=== PATIENT | female | born 1985 | race Caucasian/White ===

== ENCOUNTER → 2016-05-07 | Outpatient (REF) | payer OTHER ==
[~2016-05-07] MED LIST: ACET50TA PO; IBUP60TA PO; VITAPRTA PO
[2016-05-07 20:53] LABS: BASO % 0.7 % (0.0-1.0); EOS # 0.2 K/mm3 (0.0-0.50); EOS % 2.3 % (0.0-3.0); LARGE UNSTAINED CELL # 0.2 K/mm3 (0.0-0.4); LYMPH # 1.9 K/mm3 (1.5-6.5); LYMPH % 23.2 % (24.0-44.0); MEAN CORPUSCULAR HEMOGLOBIN 29.4 pg (27.0-33.0); MEAN CORPUSCULAR HGB CONC 33.1 g/dl (32.0-36.5); MEAN CORPUSCULAR VOLUME 88.9 fl (80.0-96.0); MONO # 0.3 K/mm3 (0.0-0.8); MONO % 3.7 % (0.0-5.0); NEUTROPHILS # 5.6 K/mm3 (1.8-7.7); NEUTROPHILS % 68.1 % (36.0-66.0); PLATELET COUNT, AUTOMATED 192 k/mm3 (150-450); RED CELL DISTRIBUTION WIDTH 12.9 % (11.5-14.5); WHITE BLOOD COUNT 8.2 K/mm3 (4.0-10.0)
[2016-05-07 21:17] LABS: FOLATE > 24.0 NG/ML; VITAMIN B12 LEVEL 941 PG/ML
[2016-05-07 21:23] LABS: ALBUMIN 4.5 GM/DL (3.2-5.2); ALBUMIN/GLOBULIN RATIO 1.41 (1.00-1.93); ALKALINE PHOSPHATASE 65 U/L (45-117); ALT/SGPT 30 U/L (12-78); ANION GAP 9 MEQ/L (8-16); AST/SGOT 25 U/L (15-37); BILIRUBIN,TOTAL 0.9 MG/DL (0.2-1.0); BLOOD UREA NITROGEN 16 MG/DL (7-18); CALCIUM LEVEL 8.8 MG/DL (8.5-10.1); CARBON DIOXIDE LEVEL 30 MEQ/L (21-32); CHLORIDE LEVEL 102 MEQ/L (98-107); CREATININE FOR GFR 0.69 MG/DL (0.55-1.02); GLOMERULAR FILTRATION RATE > 60.0 (>60); GLUCOSE, FASTING 74 MG/DL (70-105); POTASSIUM SERUM 3.7 MEQ/L (3.5-5.1); SODIUM LEVEL 141 MEQ/L (136-145); TOTAL PROTEIN 7.7 GM/DL (6.4-8.2)
== END ==
LOC: M LABDRWAD 19:45
PROVIDERS: ATTEND Nurse Practitioner Family
DX: R53.1 Weakness (principal)

== ENCOUNTER → 2016-09-15 | Outpatient (REF) | payer OTHER | LOC: M LAB REF 09:33 | PROVIDERS: ATTEND Physician Assistant | DX: N39.0 Urinary tract infection, site not specified (principal) ==

== ENCOUNTER → 2017-01-29 | Outpatient (REF) | payer OTHER | LOC: M LAB REF 13:28 | PROVIDERS: ATTEND Physician Assistant Medical | DX: N30.01 Acute cystitis with hematuria (principal) ==

== ENCOUNTER → 2017-04-04 | Outpatient (REF) | payer OTHER ==
[2017-04-04 21:16] LABS: BASO % 0.5 % (0.0-1.0); EOS # 0.2 10^3/uL (0.0-0.50); EOS % 2.2 % (0.0-3.0); IMMATURE GRANULOCYTE % 0.3 % (0-0); LYMPH # 1.4 10^3/uL (1.5-4.5); LYMPH % 18.4 % (24.0-44.0); MEAN CORPUSCULAR HEMOGLOBIN 30.4 pg (27.0-33.0); MEAN CORPUSCULAR VOLUME 89.4 fl (80.0-96.0); MONO # 0.5 10^3/uL (0.0-0.8); MONO % 6.2 % (0.0-5.0); NEUTROPHILS # 5.4 10^3/uL (1.8-7.7); NEUTROPHILS % 72.4 % (36.0-66.0); PLATELET COUNT, AUTOMATED 158 10^3/uL (150-450); RED CELL DISTRIBUTION WIDTH 12.8 % (11.5-14.5); WHITE BLOOD COUNT 7.4 10^3/uL (4.0-10.0)
[2017-04-05 10:28] LABS: HBsAg Prenatal NEGATIVE (NEGATIVE)
== END ==
LOC: M LAB REF 08:45
DX: Z36.89 Encounter for other specified antenatal screening (principal); Z3A.08 8 weeks gestation of pregnancy
CPT/HCPCS: 86762

== ENCOUNTER → 2017-05-30 | Outpatient (CLI) | payer BC, OTHER | LOC: M SMT 07:56 | DX: Z34.82 Encounter for supervision of other normal pregnancy, second trimester (principal); Z3A.18 18 weeks gestation of pregnancy | CPT/HCPCS: 76811 ==

== ENCOUNTER → 2017-08-01 | Outpatient (CLI) | payer BC, OTHER | LOC: M SMT 08:05 | DX: Z34.82 Encounter for supervision of other normal pregnancy, second trimester (principal) ==

== ENCOUNTER → 2017-08-08 | Outpatient (CLI) | payer OTHER, BC ==
[2017-08-08 20:08] LABS: HEMATOCRIT 29.4 % (36.0-47.0); HEMOGLOBIN 9.9 g/dl (12.0-15.5); MEAN CORPUSCULAR HEMOGLOBIN 30.5 pg (27.0-33.0); MEAN CORPUSCULAR HGB CONC 33.7 g/dl (32.0-36.5); MEAN CORPUSCULAR VOLUME 90.5 fl (80.0-96.0); PLATELET COUNT, AUTOMATED 154 10^3/uL (150-450); RED BLOOD COUNT 3.25 10^6/uL (4.00-5.40); RED CELL DISTRIBUTION WIDTH 13.1 % (11.5-14.5); WHITE BLOOD COUNT 8.8 10^3/uL (4.0-10.0)
[2017-08-08 20:14] LABS: GLUCOSE CHALLENGE TEST 1 HOUR 104 MG/DL (LESS THAN 140)
[2017-08-09 08:58] LABS: TYPE AND SCREEN PRENATAL1 1 1
== END ==
LOC: M WUC 16:08
PROVIDERS: Orthopaedic Surgery
DX: Z34.82 Encounter for supervision of other normal pregnancy, second trimester (principal); Z3A.00 Weeks of gestation of pregnancy not specified
CPT/HCPCS: 82950

== ENCOUNTER → 2017-09-27 | Outpatient (REF) | payer OTHER | LOC: M LAB REF 13:05 | DX: Z34.83 Encounter for supervision of other normal pregnancy, third trimester (principal) ==

== ENCOUNTER 2017-10-19 19:59 | Inpatient (IN) | payer BC, OTHER ==
[2017-10-19] MEDS ORDERED: LACTATED RINGER'S 1000 ML IV ×2 (20:52→22:23)
[2017-10-19] MEDS ORDERED: LR 1,000 ML IV (20:52)
[2017-10-19] MEDS: CEPHALEXIN 500 MG CAP PO (21:00)
[2017-10-19 21:28] LABS: HEMATOCRIT 36.3 % (36.0-47.0); HEMOGLOBIN 12.3 g/dl (12.0-15.5); MEAN CORPUSCULAR HEMOGLOBIN 29.4 pg (27.0-33.0); MEAN CORPUSCULAR HGB CONC 33.9 g/dl (32.0-36.5); MEAN CORPUSCULAR VOLUME 86.8 fl (80.0-96.0); PLATELET COUNT, AUTOMATED 150 10^3/uL (150-450); RED BLOOD COUNT 4.18 10^6/uL (4.00-5.40); RED CELL DISTRIBUTION WIDTH 15.2 % (11.5-14.5); WHITE BLOOD COUNT 8.5 10^3/uL (4.0-10.0)
[2017-10-19] MEDS ORDERED: FENTANYL 2MCG/ML ROPIVACAINE 0.2% IN 0.9% NACL 200ML IVBAG As Ordered (21:35)
[2017-10-19 21:48] LABS: AMPHETAMINES URINE REFLEX NEGATIVE (NEGATIVE); BARBITURATES URINE REFLEX NEGATIVE (NEGATIVE); BENZODIAZEPINES URINE REFLEX NEGATIVE (NEGATIVE); CANNABINOIDS URINE REFLEX NEGATIVE (NEGATIVE); COCAINE METABOLITE URINE REFLE NEGATIVE (NEGATIVE); METHADONE URINE REFLEX NEGATIVE (NEGATIVE); OPIATES URINE REFLEX NEGATIVE (NEGATIVE); PHENCYCLIDINE URINE REFLEX NEGATIVE (NEGATIVE)
[2017-10-19] MEDS ORDERED: EPIDURAL COMMENT XX (22:23)
[2017-10-19] MEDS ORDERED: REFRIGERATOR IV KEYS XX (22:23)
[2017-10-19] MEDS ORDERED: diphenhydrAMINE INJ 50MG/ML VIAL (J1200) IV (22:23)
[2017-10-19] MEDS ORDERED: NALOXONE INJ 0.4 MG/1 ML VIAL (J2310) IV (22:23)
[2017-10-19] MEDS ORDERED: FENTANYL/ROPIVACAINE/NACL BAG 200 ML EPIDURAL (22:23)
[2017-10-19] MEDS ORDERED: EPIDURAL/PCA KEYS XX (22:23)
[2017-10-19] MEDS ORDERED: ONDANSETRON 4MG/2ML VIAL (J2405) IV (22:23)
[2017-10-19] MEDS ORDERED: ePHEDrine SULFATE 25 MG/5 ML(5MG/ML) SYRINGE IV (22:23)
[2017-10-19] MEDS ORDERED: OXYTOCIN 30 UNITS IN 0.9% NaCl 500ML IV BAG (J2590) As Ordered (23:26)
[2017-10-20] MEDS ORDERED: DOCUSATE SODIUM 100 MG CAP PO ×2 (00:30)
[2017-10-20] MEDS ORDERED: METHYLERGONOVINE MALEATE 0.2 MG TAB PO ×2 (00:30)
[2017-10-20] MEDS ORDERED: RHOGAM 300 MCG (1500 IU) INJ (J2790) IM (00:30)
[2017-10-20] MEDS ORDERED: MEASLES,MUMPS,RUBELLA VACCINE INJ (MMR-II) (90707) SC (00:30)
[2017-10-20] MEDS ORDERED: ACETAMINOPHEN 500 MG TAB PO (00:30)
[2017-10-20] MEDS ORDERED: ONDANSETRON 4MG/2ML VIAL (J2405) IV ×2 (00:30)
[2017-10-20] MEDS ORDERED: OXYTOCIN DRIP 30 UNITS in APPROPRIATE DILUENT 1 EA IV (00:30)
[2017-10-20] MEDS: OXYTOCIN DRIP 30 UNITS in APPROPRIATE DILUENT 1 EA IV (00:30)
[2017-10-20] MEDS ORDERED: IBUPROFEN 800 MG TAB PO (00:30)
[2017-10-20] MEDS ORDERED: DIBUCAINE 1% OINTMENT 30GM TOP ×2 (00:30)
[2017-10-20] MEDS: MEASLES,MUMPS,RUBELLA VACCINE INJ (MMR-II) (90707) SC (02:52)
[2017-10-20] MEDS: ACETAMINOPHEN 500 MG TAB PO ×2 (07:52→13:42)
[2017-10-20] MEDS: PRENATAL VITAMINS CHEWABLE TABLET PO (07:52)
[2017-10-20] MEDS: IBUPROFEN 800 MG TAB PO ×2 (08:42→16:11)
[2017-10-20] MEDS ORDERED: PRENATAL VITAMINS CHEWABLE TABLET PO (09:00)
[2017-10-20 15:06] LABS: FETAL SCREEN PROF. 1 1
[2017-10-20] MEDS: RHOGAM 300 MCG (1500 IU) INJ (J2790) IM (15:43)
[2017-10-21] MEDS: IBUPROFEN 800 MG TAB PO (05:04)
[2017-10-21] MEDS: PRENATAL VITAMINS CHEWABLE TABLET PO (09:28)
== END 2017-10-21 10:40 | disposition home or self-care (01) | DRG 560 ==
LOC: M LDO 19:59 → M OBS 10-20 02:11 → M LDI 20:49
PROVIDERS: Specialist
PROC: 10E0XZZ Delivery of Products of Conception, External Approach (ICD-10-PCS; principal; 2017-10-20)
PROC: 0U9MXZZ Drainage of Vulva, External Approach (ICD-10-PCS; 2017-10-20)
PROC: 0HBAXZZ Excision of Inguinal Skin, External Approach (ICD-10-PCS; 2017-10-20)
PROC: 30233S1 Transfusion of Nonautologous Globulin into Peripheral Vein, Percutaneous Approach (ICD-10-PCS; 2017-10-20)
DX: O26.893 Other specified pregnancy related conditions, third trimester (principal); N76.4 Abscess of vulva; Z37.0 Single live birth; Z3A.39 39 weeks gestation of pregnancy; Z88.0 Allergy status to penicillin; D28.0 Benign neoplasm of vulva

== ENCOUNTER → 2017-12-03 | Outpatient (REF) | payer OTHER | LOC: M LAB REF 13:23 | DX: N76.4 Abscess of vulva (principal) ==

== ENCOUNTER → 2018-01-21 | Outpatient (CLI) | payer OTHER, BC ==
[2018-01-21 20:15] LABS: ALBUMIN 4.4 GM/DL (3.2-5.2); ALBUMIN/GLOBULIN RATIO 1.29 (1.00-1.93); ALKALINE PHOSPHATASE 80 U/L (45-117); ALT/SGPT 26 U/L (12-78); ANION GAP 5 MEQ/L (8-16); AST/SGOT 19 U/L (7-37); BILIRUBIN,TOTAL 0.6 MG/DL (0.2-1.0); BLOOD UREA NITROGEN 18 MG/DL (7-18); CARBON DIOXIDE LEVEL 30 MEQ/L (21-32); CHLORIDE LEVEL 106 MEQ/L (98-107); CREATININE FOR GFR 0.71 MG/DL (0.55-1.30); GLOMERULAR FILTRATION RATE > 60.0 (>60); GLUCOSE, FASTING 80 MG/DL (70-100); POTASSIUM SERUM 4.6 MEQ/L (3.5-5.1); RHEUMATOID FACTOR QUANT < 10.0 IU/ML (<15.0); SODIUM LEVEL 141 MEQ/L (136-145); TOTAL PROTEIN 7.8 GM/DL (6.4-8.2)
[2018-01-21 20:23] LABS: ERYTHROCYTE SEDIMENTATION RATE 9 mm/hr (0-20)
== END ==
LOC: M WUC 15:55
DX: M79.644 Pain in right finger(s) (principal)
CPT/HCPCS: 80053

== ENCOUNTER → 2020-05-04 | Outpatient (CLI) | payer BC, OTHER ==
[~2020-05-04] MED LIST changes: -ACET50TA PO; +ADVI200C5 PO; +IBUP600T42 PO; -IBUP60TA PO; +ISOVUE-370 76% 100ML VIAL As Ordered ONE; +MAPA500T2 PO
--- NOTE | 2020-05-04 09:44 | REP ---
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 COMPARISON: None TECHNIQUE: Axial contrast-enhanced images from the lung bases to the pubic symphysis using 100 cc Isovue 370 intravenous contrast material. Coronal and sagittal reformations obtained. This CT examination was performed using the following dose reduction techniques: Automated exposure control, adjustment of mA and/or kv according to the patient's size, and the use of iterative reconstruction technique. FINDINGS: Lung bases are clear. Visualized heart and pericardium normal. Liver, spleen, pancreas, gallbladder, bilateral adrenal glands and kidneys are normal. The enteric system including stomach, small, and large bowel appears relatively normal. No evidence for obstruction or acute inflammatory process. Normal terminal ileum and appendix are identified in the right lower quadrant. Pelvis demonstrates normal bladder and age-appropriate uterus/adnexa. Mildly prominent left pelvic venous plexus is appreciated and possibly related to the given history of pelvic congestion syndrome. No ascites. No free air. No intraperitoneal or retroperitoneal adenopathy. Abdominal aorta and arterial vasculature appear normal. Musculoskeletal structures are intact and without acute osseous abnormality. IMPRESSION: 1. No acute abdominopelvic pathology appreciated. 2. Mildly prominent venous plexus along the left side of the uterus/adnexa which may reflect pelvic congestion syndrome and should be correlated clinically. <Electronically signed by Ac Wisdom > 05/04/20 1150
== END ==
LOC: M RAD 08:52
PROVIDERS: ATTEND Specialist
DX: I83.813 Varicose veins of bilateral lower extremities with pain (principal)
CPT/HCPCS: 74177; Q9967

== ENCOUNTER → 2020-05-11 | Outpatient (REF) | payer OTHER ==
[~2020-05-11] MED LIST changes: -ISOVUE-370 76% 100ML VIAL As Ordered ONE
== END ==
LOC: M SFHCWAGY 14:01
PROVIDERS: ATTEND Specialist
DX: Z01.419 Encounter for gynecological examination (general) (routine) without abnormal findings (principal)

== ENCOUNTER → 2023-02-08 | Outpatient (REF) | payer BC, OTHER | LOC: M SMT 15:22 | PROVIDERS: ATTEND Nurse Practitioner Family | DX: Z12.4 Encounter for screening for malignant neoplasm of cervix (principal) | CPT/HCPCS: 87624; G0123 ==

== ENCOUNTER → 2023-02-25 | Outpatient (CLI) | payer BC, OTHER | LOC: M RAD 13:52 | PROVIDERS: ATTEND Specialist | DX: I83.813 Varicose veins of bilateral lower extremities with pain (principal); I82.813 Embolism and thrombosis of superficial veins of lower extremities, bilateral ==

== ENCOUNTER → 2023-08-19 | Outpatient (CLI) | payer BC ==
[2023-08-19 17:33] LABS: BLOOD UREA NITROGEN 23 MG/DL (9-23); CREATININE FOR GFR 0.66 MG/DL (0.55-1.30); GLOMERULAR FILTRATION RATE > 60.0 (>60)
== END ==
LOC: M LAB 16:35
DX: I83.90 Asymptomatic varicose veins of unspecified lower extremity (principal)

== ENCOUNTER → 2023-09-16 | Outpatient (CLI) | payer BC ==
[~2023-09-16] MED LIST changes: +ISOVUE-370 76% 100ML VIAL As Ordered ONE
== END ==
LOC: M RAD 07:47
DX: I83.90 Asymptomatic varicose veins of unspecified lower extremity (principal)
CPT/HCPCS: 74174; Q9967

== ENCOUNTER → 2024-02-19 | Outpatient (REF) | payer BC ==
[~2024-02-19] MED LIST changes: -ISOVUE-370 76% 100ML VIAL As Ordered ONE
[2024-02-24 07:01] LABS: HPV APTIMA Not Detected (Not Detected)
== END ==
LOC: M PLALAB 16:02
PROVIDERS: ATTEND Obstetrics & Gynecology
DX: Z12.4 Encounter for screening for malignant neoplasm of cervix (principal)
CPT/HCPCS: 87624; G0123

== ENCOUNTER → 2024-10-18 | Outpatient (CLI) | payer BC ==
[2024-10-18 10:52] LABS: BASO # 0.0 10^3/uL (0.0-0.2); BASO % 0.8 % (0.0-1.0); EOS # 0.1 10^3/uL (0.0-0.5); EOS % 2.7 % (0.0-3.0); LYMPH # 1.4 10^3/uL (1.5-5.0); LYMPH % 25.6 % (24.0-44.0); MONO # 0.5 10^3/uL (0.0-0.8); MONO % 8.9 % (2.0-8.0); NEUTROPHILS # 3.3 10^3/uL (1.5-8.5); NEUTROPHILS % 61.8 % (36.0-66.0); PLATELET COUNT, AUTOMATED 155 10^3/uL (150-450)
[2024-10-18 11:04] LABS: INR 1.0
[2024-10-18 11:09] LABS: CALCIUM LEVEL 8.9 MG/DL (8.5-10.1); CARBON DIOXIDE LEVEL 26 MMOL/L (20-31); CHLORIDE LEVEL 104 MMOL/L (98-107); CREATININE FOR GFR 0.67 MG/DL (0.55-1.30); GLOMERULAR FILTRATION RATE > 90.0 (>60); POTASSIUM SERUM 4.1 MMOL/L (3.5-5.1); SODIUM LEVEL 142 MMOL/L (136-145)
== END ==
LOC: M LAB 09:50
DX: I87.1 Compression of vein (principal)

== ENCOUNTER 2024-11-02 20:47 | Emergency (ER) | payer BC ==
[~2024-11-02] VITALS: Ht 162.6 cm; Wt 65.2 kg
[2024-11-02 20:50] VITALS: TEMP 96.6
[2024-11-02] MEDS ORDERED: ELIQ5TAB (20:53)
[2024-11-02 23:35] LABS: BASO # 0.1 10^3/uL (0.0-0.2); BASO % 0.9 % (0.0-1.0); EOS # 0.2 10^3/uL (0.0-0.5); EOS % 3.0 % (0.0-3.0); LYMPH # 1.8 10^3/uL (1.5-5.0); LYMPH % 27.4 % (24.0-44.0); MONO # 0.5 10^3/uL (0.0-0.8); MONO % 7.2 % (2.0-8.0); NEUTROPHILS # 4.1 10^3/uL (1.5-8.5); NEUTROPHILS % 61.2 % (36.0-66.0); PLATELET COUNT, AUTOMATED 166 10^3/uL (150-450)
[2024-11-02 23:53] LABS: INR 1.01
[2024-11-02 23:58] LABS: CALCIUM LEVEL 8.8 MG/DL (8.5-10.1); CARBON DIOXIDE LEVEL 28 MMOL/L (20-31); CHLORIDE LEVEL 103 MMOL/L (98-107); CREATININE FOR GFR 0.67 MG/DL (0.55-1.30); GLOMERULAR FILTRATION RATE > 90.0 (>60); POTASSIUM SERUM 3.9 MMOL/L (3.5-5.1); SODIUM LEVEL 142 MMOL/L (136-145)
[2024-11-03] MEDS ORDERED: ISOVUE-370 76% 100 ML VIAL As Ordered ONE (00:03)
[2024-11-03 00:47] VITALS: BP 115/72; O2SAT 99
== END 2024-11-03 01:48 | disposition home or self-care (01) ==
LOC: M ED 20:47
DX: L76.22 Postprocedural hemorrhage of skin and subcutaneous tissue following other procedure (principal); Z88.0 Allergy status to penicillin
CPT/HCPCS: 73706; 76882; 80048; 85025; 85610; 85730; 93971; 99284; Q9967